=== PATIENT | female | born 1995 | race Hispanic/Latino ===

== ENCOUNTER 2017-05-24 15:14 | Inpatient (IN) | payer MEDICAID ==
[~2017-05-24] VITALS: Ht 160 cm; Wt 90.3 kg
[2017-05-24] MEDS ORDERED: LACTATED RINGERS 1000ML 1,000 ML IV PRN (16:41)
[2017-05-24] MEDS ORDERED: OXYTOCIN-LR 20 UNITS/1000 ML 1,000 ML IV SCH (16:45)
[2017-05-24] MEDS ORDERED: AMPICILLIN 2GM+NS 100ML 100 ML IV ONE (16:59)
[2017-05-24] MEDS ORDERED: LACTATED RINGERS 1000ML 1,000 ML IV ONE (16:59)
[2017-05-24] MEDS ORDERED: AMPICILLIN 2GM+NS 100ML 100 ML IV SCH (17:00)
[2017-05-24 17:07] LABS: HEMATOCRIT 40.3 % (36-48); MEAN CORPUSCULAR HEMOGLOBIN 30.5 pg (27.0-33.0); MEAN CORPUSCULAR HGB CONC 33.5 g/dL (32.0-36.0); MEAN CORPUSCULAR VOLUME 91.1 fL (79-99); PLATELET COUNT (AUTO) 187 K/uL (130-400); RED BLOOD CELL COUNT(AUTO) 4.42 MIL/uL (4.00-5.50); RED CELL DISTRIBUTION WIDTH 13.1 % (11.0-15.5)
[2017-05-24] MEDS ORDERED: PROMETHAZINE HCL 25 MG/ML 1ML AMPULE IM ONE ×2 (20:21→21:30)
[2017-05-24] MEDS ORDERED: MEPERIDINE-PF 50 MG/ML SYG ONE (20:22)
[2017-05-24] MEDS ORDERED: NALOXONE HCL 0.4 MG/1 ML ML IV PRN (20:30)
[2017-05-24] MEDS ORDERED: ROPIVACAINE 0.2%200ML EPIDURAL 200 ML EP SCH (20:30)
[2017-05-24] MEDS ORDERED: LACTATED RINGERS 500 ML 500 ML IV PRN (20:30)
[2017-05-24] MEDS ORDERED: EPHEDRINE SULFATE 50 MG/ML AMPULE IVP PRN (20:30)
[2017-05-24] MEDS ORDERED: MEPERIDINE-PF 50 MG/ML SYG IVP ONE (21:30)
[2017-05-24] MEDS: AMPICILLIN 1GM+NS 50ML 50 ML IV SCH (23:23)
[2017-05-25] MEDS ORDERED: EPHEDRINE-NS PF 50MG/5ML SYRINGE IV ONE (00:43)
[2017-05-25] MEDS ORDERED: OXYTOCIN 10 USP UNITS/ML ONE ×2 (02:22→03:38)
[2017-05-25] MEDS: AMPICILLIN 1GM+NS 50ML 50 ML IV SCH (02:26)
[2017-05-25] MEDS ORDERED: ACETAMINOPHEN-CODEINE 300/30MG TAB PO PRN (03:30)
[2017-05-25] MEDS ORDERED: WITCH HAZEL 1 PAD TP PRN (03:30)
[2017-05-25] MEDS ORDERED: OXYTOCIN-LR 20 UNITS/1000 ML 1,000 ML IV SCH (03:30)
[2017-05-25] MEDS ORDERED: BENZOCAINE/LANOLIN/ALOE VERA 60 ML AEROSOL TP PRN (03:30)
[2017-05-25] MEDS ORDERED: LANOLIN 30GM OINTMENT TP PRN (03:30)
[2017-05-25] MEDS ORDERED: ACETAMINOPHEN EXTRA STRENGTH 500 MG TABLET ONE (03:35)
[2017-05-25 05:03] VITALS: BP 125/64
[2017-05-25] MEDS ORDERED: PREN1TAB89 PO (05:18)
[2017-05-25] MEDS: AMPICILLIN 2GM+NS 100ML 100 ML IV SCH ×4 (06:33→23:34)
[2017-05-25 07:40] VITALS: BP 114/58
[2017-05-25] MEDS: DOCUSATE SODIUM 100 MG CAP PO SCH ×2 (08:10→20:18)
[2017-05-25 11:21] VITALS: BP 111/64
[2017-05-25] MEDS: IBUPROFEN 800 MG TAB PO PRN ×2 (11:27→20:19)
[2017-05-25 15:48] VITALS: BP 93/55
[2017-05-25 20:21] VITALS: BP 98/61
[2017-05-25 23:25] VITALS: BP 97/51
[2017-05-26 03:42] VITALS: BP 95/51
[2017-05-26] MEDS: AMPICILLIN 2GM+NS 100ML 100 ML IV SCH ×4 (05:44→23:39)
[2017-05-26 07:58] VITALS: BP 96/55
[2017-05-26 08:25] LABS: HEPATITIS Bs ANTIGEN SCREEN P Negative (Negative)
[2017-05-26] MEDS: DOCUSATE SODIUM 100 MG CAP PO SCH ×2 (08:47→21:25)
[2017-05-26] MEDS: IBUPROFEN 800 MG TAB PO PRN ×2 (08:48→21:27)
[2017-05-26 11:14] VITALS: BP 105/67
[2017-05-26 15:40] VITALS: BP 115/71
[2017-05-26 19:27] VITALS: BP 97/56
[2017-05-26 23:43] VITALS: BP 123/59
[2017-05-27 03:19] VITALS: BP 98/58
[2017-05-27] MEDS: AMPICILLIN 2GM+NS 100ML 100 ML IV SCH (06:14)
[2017-05-27 06:54] LABS: MEAN CORPUSCULAR HEMOGLOBIN 31.6 pg (27.0-33.0); MEAN CORPUSCULAR HGB CONC 34.8 g/dL (32.0-36.0); MEAN CORPUSCULAR VOLUME 90.9 fL (79-99); PLATELET COUNT (AUTO) 155 K/uL (130-400); RED BLOOD CELL COUNT(AUTO) 3.52 MIL/uL (4.00-5.50); RED CELL DISTRIBUTION WIDTH 13.2 % (11.0-15.5); WHITE BLOOD COUNT (AUTO) 11.4 K/uL (4.8-10.8)
[2017-05-27 07:37] VITALS: BP 126/81
[2017-05-27] MEDS: DOCUSATE SODIUM 100 MG CAP PO SCH (08:46)
[2017-05-27] MEDS: IBUPROFEN 800 MG TAB PO PRN (08:48)
[2017-05-27] MEDS ORDERED: DOCU-116 PO (09:40)
[2017-05-27] MEDS ORDERED: IBUP-2077 PO (09:41)
== END 2017-05-27 10:00 | disposition home or self-care (01) | DRG 560 ==
LOC: OBSVTOIN 15:14 → LDH 15:14 → WSH 05-25 05:00
PROVIDERS: ADMIT Obstetrics & Gynecology; ATTEND Obstetrics & Gynecology
PROC: 3E0R3BZ Introduction of Anesthetic Agent into Spinal Canal, Percutaneous Approach (ICD-10-PCS; principal; 2017-05-25)
PROC: 10E0XZZ Delivery of Products of Conception, External Approach (ICD-10-PCS; 2017-05-25)
PROC: 00HU33Z Insertion of Infusion Device into Spinal Canal, Percutaneous Approach (ICD-10-PCS; 2017-05-25)
DX: O99.824 Streptococcus B carrier state complicating childbirth (principal); O41.1230 Chorioamnionitis, third trimester, not applicable or unspecified; O75.2 Pyrexia during labor, not elsewhere classified; Z37.0 Single live birth; Z3A.38 38 weeks gestation of pregnancy
CPT/HCPCS: 36415; 85027; 86592; 86850; 86900; 86901; 87070; 87076; 87340; 88307; A4314; J0290; J2175; J2550; J2590; J3490; J7120